=== PATIENT | female | born 1955 | race Caucasian/White ===

== ENCOUNTER → 2017-08-31 | Outpatient (CLI) | payer OTHER ==
[~2017-08-31] MED LIST: ACYCLOVIR400 MG PO; ASPIRIN81 M1 PO; ASPIRIN81 MG; DYAZIDE 25 MG-31 CAP; HCTZ/TRIAMTEREN1 CA2 PO; IMDUR ER30 MG PO; LIPITOR20 MG; LIPITOR20 MG PO; METOPROLOL SR50 MG PO; METOPROLOL50 MG; OMEPRAZOLE20 MG PO; OMEPRAZOLE40 MG; PERCOCET 325 MG1 TA7 PO; PLAVIX75 MG; PLAVIX75 MG PO; TRANDOLAPRIL2 MG; TRANDOLAPRIL2 MG PO; VALACYCLOVIR HYD1 GM PO; VALTREX; VENTOLIN0.09 MG/AC IH; VERAPAMIL ER240 MG; VERAPAMIL ER240 MG PO
== END | disposition home or self-care (01) ==
LOC: MAMMO 07:44
DX: Z12.31 Encounter for screening mammogram for malignant neoplasm of breast (principal); I65.23 Occlusion and stenosis of bilateral carotid arteries

== ENCOUNTER → 2017-11-04 | Outpatient (CLI) | payer OTHER ==
[2017-11-04 14:28] LABS: BASO # 0.1 10*3/uL (0.0-0.1); BASO % 0.7 % (0.0-1.0); EOS # 0.2 10*3/uL (0.0-0.4); EOS % 1.6 % (1.0-4.0); HEMATOCRIT 43.1 % (37.0-47.0); HEMOGLOBIN 14.7 g/dl (12.0-16.0); LYMPH # 3.9 10*3/uL (1.3-4.4); LYMPH % 38.6 % (27.0-41.0); MEAN CELL VOLUME 90.5 fl (81.0-99.0); MEAN CORPUSCULAR HGB 30.9 pg (27.0-31.0); MEAN CORPUSCULAR HGB CONC 34.1 g/dl (33.0-37.0); MEAN PLATELET VOLUME 10.2 fl (9.6-12.3); MONO # 0.5 10*3/uL (0.1-1.0); MONO % 5.3 % (3.0-9.0); NEUT # 5.4 10*3/uL (2.3-7.9); NEUT % 53.5 % (47.0-73.0); PLATELET COUNT AUTOMATED 355 10*3/uL (130-400); RED BLOOD COUNT 4.76 10*6/uL (4.10-5.10); RED CELL DISTRI WIDTH 12.7 % (0-14.5); WHITE BLOOD COUNT 10.1 10*3/uL (4.8-10.8)
[2017-11-04 14:58] LABS: ALBUMIN 4.1 gm/dl (3.1-4.5); ALKALINE PHOSPHATASE 111 U/L (45-117); BUN 12 mg/dl (7-24); CHLORIDE 100 mmol/L (98-107); CHOLESTEROL 145 mg/dL (<200); CREATININE 0.68 mg/dL (0.55-1.02); FREE T4 1.13 ng/dl (0.76-1.46); HDL CHOLESTEROL 41 mg/dl (40-60); LDL CHOLESTEROL 79 mg/dL (9-159); POTASSIUM 3.8 mmol/L (3.5-5.1); SGOT/AST 16 IU/L (3-35); SGPT/ALT 26 U/L (12-78); SODIUM 138 mmol/L (136-145); TOTAL PROTEIN 7.5 gm/dL (6.4-8.2); TRIGLYCERIDES 125 mg/dl (<150); VLDL CHOLESTEROL 25 mg/dL (6-40)
[2017-11-04 15:03] LABS: THYROID STIM HORMONE (HS) 0.953 uIU/ml (0.358-4.75)
[2017-11-04 16:02] LABS: VITAMIN D, 25-HYDROXY 19.8 ng/mL (30-100)
== END | disposition home or self-care (01) ==
LOC: LAB 14:13
PROVIDERS: Internal Medicine
DX: Z00.01 Encounter for general adult medical examination with abnormal findings (principal); Z13.1 Encounter for screening for diabetes mellitus; Z13.21 Encounter for screening for nutritional disorder; Z13.220 Encounter for screening for lipoid disorders; E11.9 Type 2 diabetes mellitus without complications; E55.9 Vitamin D deficiency, unspecified; E78.2 Mixed hyperlipidemia; R53.81 Other malaise

== ENCOUNTER → 2022-09-08 | Outpatient (CLI) | payer BC ==
[2022-09-08 08:43] LABS: CREATININE 0.74 mg/dL (0.55-1.02)
== END | disposition home or self-care (01) ==
LOC: CT 08:00 → LAB 08:09
PROVIDERS: ATTEND Internal Medicine
DX: Z01.812 Encounter for preprocedural laboratory examination (principal); I65.23 Occlusion and stenosis of bilateral carotid arteries; I25.10 Atherosclerotic heart disease of native coronary artery without angina pectoris

== ENCOUNTER → 2024-10-02 | Outpatient (CLI) | payer MEDICARE | END | disposition home or self-care (01) | LOC: MRI 09:21 | PROVIDERS: ATTEND Internal Medicine | DX: M51.379 Other intervertebral disc degeneration, lumbosacral region without mention of lumbar back pain or lower extremity pain (principal); M48.062 Spinal stenosis, lumbar region with neurogenic claudication; M43.16 Spondylolisthesis, lumbar region; M47.817 Spondylosis without myelopathy or radiculopathy, lumbosacral region ==

== ENCOUNTER → 2024-11-21 | Outpatient (CLI) | payer MEDICARE ==
[2024-11-21 13:14] LABS: BASO # 0.1 10*3/uL (0.0-0.1); BASO % 0.8 % (0.0-1.0); EOS # 0.3 10*3/uL (0.0-0.4); EOS % 2.4 % (1.0-4.0); HEMATOCRIT 43.5 % (37.0-47.0); MEAN CORPUSCULAR HGB 30.3 pg (27.0-31.0); MEAN PLATELET VOLUME 10.3 fl (9.6-12.3); NEUT % 47.1 % (47.0-73.0); PLATELET COUNT AUTOMATED 301 10*3/uL (130-400); RED BLOOD COUNT 4.58 10*6/uL (4.10-5.10); WHITE BLOOD COUNT 10.7 10*3/uL (4.8-10.8)
[2024-11-21 13:44] LABS: ALKALINE PHOSPHATASE 128 U/L (46-116); BUN 22 mg/dl (9-23); CHLORIDE 105 mmol/L (98-107); CHOLESTEROL 166 mg/dL (<200); LDL CHOLESTEROL 82 mg/dL (9-159); POTASSIUM 4.1 mmol/L (3.4-5.1); SGPT/ALT 11 U/L (5-49); TOTAL PROTEIN 7.6 gm/dL (6.0-8.0); TRIGLYCERIDES 217 mg/dl (<150)
[2024-11-21 13:46] LABS: FREE T4 1.08 ng/dl (0.89-1.76)
[2024-11-21 13:49] LABS: VITAMIN D, 25-HYDROXY 29.9 ng/mL (30-100)
== END | disposition home or self-care (01) ==
LOC: LAB 12:56
PROVIDERS: ATTEND Internal Medicine
DX: Z13.1 Encounter for screening for diabetes mellitus (principal); Z13.21 Encounter for screening for nutritional disorder; Z13.220 Encounter for screening for lipoid disorders; Z13.228 Encounter for screening for other metabolic disorders; Z13.29 Encounter for screening for other suspected endocrine disorder; Z13.6 Encounter for screening for cardiovascular disorders; Z13.89 Encounter for screening for other disorder; Z13.9 Encounter for screening, unspecified; Z13.0 Encounter for screening for diseases of the blood and blood-forming organs and certain disorders involving the immune mechanism; I10 Essential (primary) hypertension; E78.2 Mixed hyperlipidemia; R53.83 Other fatigue; F17.210 Nicotine dependence, cigarettes, uncomplicated; R73.9 Hyperglycemia, unspecified; E53.9 Vitamin B deficiency, unspecified; E55.9 Vitamin D deficiency, unspecified

== ENCOUNTER → 2024-12-12 | Outpatient (CLI) | payer MEDICARE ==
[~2024-12-12] MED LIST changes: +ALLOPURINOL100 MG PO; +BUMETANIDE1 MG PO; +LEXAPRO10 MG PO; -LIPITOR20 MG PO; +LIPITOR80 MG PO; +LOSARTAN POTASS50 M1 PO; +NEURONTIN300 MG PO; +NITROGLYCERIN0.4 MG SL; +NORVASC2.5 MG PO; +PEPCID20 MG PO; +REQUIP2 MG PO; +VIT D3 PO
== END | disposition home or self-care (01) ==
LOC: CARD 09:59
PROVIDERS: ATTEND Internal Medicine
DX: I34.0 Nonrheumatic mitral (valve) insufficiency (principal); R06.02 Shortness of breath; R07.9 Chest pain, unspecified

== ENCOUNTER 2024-12-14 08:42 | Observation (INO) | payer MEDICARE ==
[~2024-12-14] VITALS: Ht 155 cm; Wt 62.0 kg
[~2024-12-14 08:42] MED LIST changes: -LOSARTAN POTASS50 M1 PO; -NITROGLYCERIN0.4 MG SL
[2024-12-14 08:44] VITALS: BP 191/94; BP 217/98
[2024-12-14] MEDS ORDERED: SODIUM CHLORIDE 0.9% 1,000 ML IV ONE (08:50)
[2024-12-14] MEDS ORDERED: Ondansetron Hydrochloride 4 MG/2 ML VIAL IV ONE (08:55)
[2024-12-14] MEDS ORDERED: MORPHINE Sulfate 2 MG/ML SYR IV ONE (08:55)
[2024-12-14 09:20] LABS: ACT PARTIAL THROMBO TIME 26.2 SECONDS (20.0-32.1)
[2024-12-14 09:31] LABS: BUN 16 mg/dl (9-23); CHLORIDE 105 mmol/L (98-107); POTASSIUM 4.5 mmol/L (3.4-5.1)
[2024-12-14 10:21] LABS: BASO # 0.1 10*3/uL (0.0-0.1); BASO % 0.4 % (0.0-1.0); EOS # 0.1 10*3/uL (0.0-0.4); EOS % 0.9 % (1.0-4.0); HEMATOCRIT 45.5 % (37.0-47.0); MEAN CELL VOLUME 95.8 fl (81.0-99.0); MEAN CORPUSCULAR HGB 31.2 pg (27.0-31.0); MEAN CORPUSCULAR HGB CONC 32.5 g/dl (33.0-37.0); MEAN PLATELET VOLUME 9.8 fl (9.6-12.3); MONO # 0.7 10*3/uL (0.1-1.0); NEUT # 10.4 10*3/uL (2.3-7.9); PLATELET COUNT AUTOMATED 344 10*3/uL (130-400); RED BLOOD COUNT 4.75 10*6/uL (4.10-5.10); RED CELL DISTRI WIDTH 13.7 % (0-14.5); WHITE BLOOD COUNT 13.9 10*3/uL (4.8-10.8)
[2024-12-14 11:30] VITALS: BP 136/85
[2024-12-14] MEDS ORDERED: Enoxaparin Sodium 60 MG/0.6 ML SYR SC SCH (12:23)
[2024-12-14] MEDS ORDERED: Acetaminophen/Hydrocodone HP 10/325 PO PRN (12:25)
[2024-12-14] MEDS ORDERED: NITROGLYCERIN 1 IN PACKET T SCH (12:27)
[2024-12-14 13:16] VITALS: BP 151/87
[2024-12-14] MEDS ORDERED: Clopidogrel Hydrogen Sulfate 75 MG TAB PO SCH (14:25)
[2024-12-14 16:30] VITALS: BP 196/85
[2024-12-14] MEDS ORDERED: LOSARTAN POTASS50 M1 PO (17:00)
[2024-12-14] MEDS ORDERED: NITROGLYCERIN0.4 MG SL (17:02)
[2024-12-14] MEDS ORDERED: Losartan Potassium 50 MG TAB PO SCH (18:00)
[2024-12-14 18:45] VITALS: BP 159/71
[2024-12-14 20:00] VITALS: BP 166/71
[2024-12-14] MEDS ORDERED: Ropinirole Hydrochloride 1 MG TAB PO SCH (20:00)
[2024-12-14] MEDS ORDERED: Ranolazine 500 MG TAB ER PO SCH (22:00)
[2024-12-14] MEDS ORDERED: ACETAMINOPHEN 325 MG TAB PO PRN (23:55)
[2024-12-15] VITALS: BP 152/78; BP 178/93
[2024-12-15 08:00] VITALS: BP 160/80
[2024-12-15] MEDS ORDERED: ACYCLOVIR 400 MG TAB PO SCH (10:00)
[2024-12-15] MEDS ORDERED: ESCITALOPRAM OXALATE 10 MG TAB PO SCH (10:00)
[2024-12-15] MEDS ORDERED: Vitamin D 1,000 IU TAB (25 MCG) PO SCH (10:00)
[2024-12-15] MEDS ORDERED: METOPROLOL SUCCINATE XR 50 MG TAB PO SCH (10:00)
[2024-12-15] MEDS ORDERED: FAMOTIDINE 20 MG TAB PO SCH (10:00)
[2024-12-15] MEDS ORDERED: METOPROLOL SUCCINATE XR 25 MG TAB PO SCH (10:00)
[2024-12-15] MEDS ORDERED: ATORVASTATIN CALCIUM 80 MG TAB PO SCH (10:00)
[2024-12-15] MEDS ORDERED: GABAPENTIN 300 MG CAP PO SCH (10:00)
[2024-12-15] MEDS ORDERED: amLODIPine besylate 2.5 MG TAB PO SCH (10:00)
[2024-12-15] MEDS ORDERED: Clopidogrel Hydrogen Sulfate 75 MG TAB PO SCH (10:00)
[2024-12-15] MEDS ORDERED: ALLOPURINOL 100 MG TAB PO SCH (10:00)
[2024-12-15] MEDS ORDERED: BUMETANIDE 1 MG TAB PO SCH (10:00)
[2024-12-15 12:00] VITALS: BP 140/62
[2024-12-15 16:00] VITALS: BP 186/67
[2024-12-15 20:00] VITALS: BP 148/62
[2024-12-16] VITALS: BP 132/60
[2024-12-16 08:00] VITALS: BP 190/72
[2024-12-16] MEDS ORDERED: LORazepam 0.5 MG TAB PO ONE (08:30)
[2024-12-16] MEDS ORDERED: amLODIPine besylate 5 MG TAB PO SCH (10:00)
[2024-12-16 12:00] VITALS: BP 129/58
[2024-12-16 16:00] VITALS: BP 161/61
[2024-12-16 20:00] VITALS: BP 178/88
[2024-12-16] MEDS ORDERED: Losartan Potassium 50 MG TAB PO SCH (22:00)
[2024-12-17] VITALS: BP 128/32; BP 128/62
[2024-12-17] MEDS ORDERED: ROPINIROLE HYDRO1 MG PO (01:42)
[2024-12-17] MEDS ORDERED: HYDROCODONE-AC1 EAC1 PO (01:42)
[2024-12-17] MEDS ORDERED: VITAMIN D325 MC1 PO (01:46)
[2024-12-17 08:00] VITALS: BP 171/54
[2024-12-17] MEDS ORDERED: RANOLAZINE ER500 MG PO ×2 (08:52→08:53)
[2024-12-17] MEDS ORDERED: LOSARTAN POTASS50 M1 PO (08:52)
[2024-12-17] MEDS ORDERED: AMLODIPINE BESYL5 MG PO (08:52)
== END 2024-12-17 12:17 | disposition home or self-care (01) ==
LOC: ED 08:42 → 4E 11:46 → EDHOLD 11:46 → 4E 13:57
PROVIDERS: Emergency Medicine; ADMIT Internal Medicine; ATTEND Internal Medicine
DX: R07.89 Other chest pain (principal); I25.10 Atherosclerotic heart disease of native coronary artery without angina pectoris; I10 Essential (primary) hypertension; E78.5 Hyperlipidemia, unspecified; G25.81 Restless legs syndrome; M54.9 Dorsalgia, unspecified; G89.29 Other chronic pain; Z95.1 Presence of aortocoronary bypass graft; Z79.82 Long term (current) use of aspirin; Z79.899 Other long term (current) drug therapy

== ENCOUNTER → 2025-04-25 | Outpatient (CLI) | payer MEDICARE ==
[~2025-04-25] MED LIST changes: +AMLODIPINE BESYL5 MG PO; +HYDROCODONE-AC1 EAC1 PO; +LOSARTAN POTASS50 M1 PO; +NITROGLYCERIN0.4 MG SL; +RANOLAZINE ER500 MG PO; +ROPINIROLE HYDRO1 MG PO; +VITAMIN D325 MC1 PO
== END | disposition home or self-care (01) ==
LOC: US 07:56
PROVIDERS: ATTEND Internal Medicine Cardiovascular Disease
DX: I10 Essential (primary) hypertension (principal); I25.10 Atherosclerotic heart disease of native coronary artery without angina pectoris; E78.5 Hyperlipidemia, unspecified

== ENCOUNTER → 2025-10-14 | Outpatient (CLI) | payer MEDICARE ==
[2025-10-14 10:21] LABS: BASO # 0.1 10*3/uL (0.0-0.1); BASO % 0.6 % (0.0-1.0); EOS # 0.1 10*3/uL (0.0-0.4); EOS % 1.0 % (1.0-4.0); MEAN CELL VOLUME 95.5 fl (81.0-99.0); MEAN CORPUSCULAR HGB 32.2 pg (27.0-31.0); MEAN PLATELET VOLUME 10.7 fl (9.6-12.3); MONO # 0.5 10*3/uL (0.1-1.0); MONO % 5.1 % (3.0-9.0); NEUT # 5.1 10*3/uL (2.3-7.9); NEUT % 53.6 % (47.0-73.0); NUCLEATED RED BLOOD CELL 0.0 % (0.0-0.0); NUCLEATED RED BLOOD CELL 0.0 10*3/uL (0.0-0.0); PLATELET COUNT AUTOMATED 333 10*3/uL (130-400); RED CELL DISTRI WIDTH 12.3 % (0-14.5)
[2025-10-14 11:00] LABS: BUN 21 mg/dl (9-23); FREE T4 1.15 ng/dl (0.89-1.76); LDL CHOLESTEROL 75 mg/dL (9-159); SGPT/ALT 10 U/L (5-49)
[2025-10-14 11:03] LABS: VITAMIN D, 25-HYDROXY 40.8 ng/mL (30-100)
== END | disposition home or self-care (01) ==
LOC: LAB 09:21
PROVIDERS: ATTEND Internal Medicine
DX: I10 Essential (primary) hypertension (principal); E78.2 Mixed hyperlipidemia; E55.9 Vitamin D deficiency, unspecified; E11.9 Type 2 diabetes mellitus without complications; E53.9 Vitamin B deficiency, unspecified; R53.83 Other fatigue; Z13.0 Encounter for screening for diseases of the blood and blood-forming organs and certain disorders involving the immune mechanism; Z13.1 Encounter for screening for diabetes mellitus; Z13.21 Encounter for screening for nutritional disorder; Z13.220 Encounter for screening for lipoid disorders; Z13.228 Encounter for screening for other metabolic disorders; Z13.29 Encounter for screening for other suspected endocrine disorder; Z13.6 Encounter for screening for cardiovascular disorders; Z13.89 Encounter for screening for other disorder; Z13.9 Encounter for screening, unspecified